=== PATIENT | female | born 1985 | race African-American/Black ===

== ENCOUNTER 2017-02-28 17:00 | Emergency (ER) | payer BC ==
[~2017-02-28] VITALS: Ht 160 cm; Wt 75.3 kg
[~2017-02-28 17:00] MED LIST: ACETAMINOPHEN325 M1 PO; ANUSOL OINTMENT24 GM RC; ATIVAN0.5 MG PO; CITRATE OF MAG296 ML PO; COLACE100 MG PO; DIFLUCAN150 MG PO; FLAGYL500 MG PO; IBUPROFEN 800800 MG PO; MOTION RELIEF25 MG PO; NAPROSYN500 MG PO; NOHOMEMEDICATIONS; NORFLEX100 MG PO; PROCTOFOAM-HC 110 GM RC; ZOFRAN ODT4 MG PO; ZPAK PO
[2017-02-28 17:01] VITALS: BP 126/78
== END 2017-02-28 17:52 | disposition home or self-care (01) ==
LOC: ER 17:00
DX: M72.2 Plantar fascial fibromatosis (principal); F10.99 Alcohol use, unspecified with unspecified alcohol-induced disorder

== ENCOUNTER 2018-04-18 15:49 | Emergency (ER) | payer BC ==
[~2018-04-18] VITALS: Ht 160 cm; Wt 78.0 kg
[2018-04-18] MEDS ORDERED: PEPCID20 MG PO (16:30)
[2018-04-18 17:25] VITALS: BP 110/70
== END 2018-04-18 17:26 | disposition home or self-care (01) ==
LOC: ER 15:49
DX: R13.10 Dysphagia, unspecified (principal)